=== PATIENT | female | born 1955 | race Caucasian/White ===

== ENCOUNTER 2021-03-13 15:19 | Outpatient (REF) | payer OTHER, SELFPAY ==
[2021-03-13 16:07] LABS: COVID-19 Test Negative (Negative)
== END 2021-03-13 15:20 | disposition home or self-care (01) ==
LOC: HO.LAB 15:19
PROVIDERS: PCP Physician Assistant; Visit Provider Internal Medicine
DX: Z20.822 Contact with and (suspected) exposure to COVID-19 (principal)
CPT/HCPCS: 36415; 87635; C9803

== ENCOUNTER 2021-06-24 08:24 | Outpatient (REF) | payer OTHER, SELFPAY ==
--- NOTE | ~2021-06-24 | CT_ITS ---
EXAMINATION: CT CHEST WITH CONTRAST CLINICAL INFORMATION: Dysphagia COMPARISON: None TECHNIQUE: Multidetector volumetric CT imaging of the chest was obtained after the administration of 65 mL of Omnipaque 350 intravenous contrast without immediate adverse reactions. Oral barium paste was also administered. Axial MIP volume rendering provided. Sagittal and coronal reformatted images were obtained. This CT examination was performed using dose optimization techniques as appropriate, variously including the following: *Automated exposure control *Adjustment of mA and/or kV according to patient size (this includes techniques or standardized protocols for targeted exams where dose is matched to indication/reason for exam; i.e. extremities or head) *Use of iterative reconstruction technique DLP: 193 mGy-cm There is a 3 x 10 mm peripheral or subpleural left upper lobe nodule axial image 141 series 7 or pleural thickening. There is a 4 x 7 mm peripheral or subpleural right upper lobe nodule axial image 144 series 7 or pleural thickening. There is a 2 mm right lower lobe nodule axial image 197 series 7. FINDINGS: LUNGS: The lungs are clear with no evidence of inflammation or nodules. MEDIASTINUM: There is a stent seen in the aortic arch and proximal descending thoracic aorta. There is mild dilatation of the aortic arch measuring 3.3 cm and proximal descending thoracic aorta measuring maximum 3.5 cm in diameter. No dissection is seen. The esophagus abuts the aorta. The mid thoracic esophagus has a slightly aberrant course lateral to the descending thoracic aorta. The esophagus is in between the descending thoracic aorta and the left lower lobe pulmonary artery and vein. The esophagus is otherwise unremarkable. The heart does not appear enlarged. There is mild coronary artery calcification. There is no pericardial effusion. There are no enlarged hilar or mediastinal lymph nodes. PLEURA: There is no pleural effusion. No pleural mass or thickening. AXILLA: No chest wall mass. There are bilateral axillary lymph nodes. Left axillary lymph nodes are upper normal in size, largest measuring 1 cm. UPPER ABDOMEN: There is a small 7 mm low-attenuation lesion high in the right lobe of the liver axial image 60 series 3 probably representing a cyst. There may be a second smaller cyst in the right lobe axial image 68 series 3. Images through the upper abdomen are otherwise unremarkable. OSSEOUS STRUCTURES: There is mild scoliosis and degenerative change of the spine. CT/CT chest w con IMPRESSION: Stent in the aortic arch and proximal descending thoracic aorta. Mild dilatation of the aortic arch measuring 3.3 cm and proximal descending thoracic aorta measuring 3.5 cm. The mid thoracic esophagus courses lateral to the descending thoracic aorta and is located in between the descending thoracic aorta and left lower lobe pulmonary artery and vein. It is possible there could be extrinsic compression on the esophagus from the adjacent vessels. The esophagus is otherwise unremarkable. Probable pleural thickening adjacent to the bilateral upper lobes. A small 2 mm right lower lobe nodule. According to the UPDATED 2017 Fleischner Society recommendations, the advised follow-up imaging for less than 6 mm nodule: Low risk, no chest CT follow-up and high risk, optional chest CT follow-up in one year. Posterior peripheral or subpleural Mild coronary artery calcification. Small probable liver cysts. Upper normal-sized left axillary lymph nodes. Fleischner guidelines were followed.
[2021-06-24] MEDS: iohexoL 350 MG/ML 100 ML INFUS..BTL 85 ML IV (10:31)
== END 2021-06-24 08:25 | disposition home or self-care (01) ==
LOC: HO.CT 08:24
PROVIDERS: PCP Physician Assistant; Visit Provider Internal Medicine Gastroenterology
DX: R13.14 Dysphagia, pharyngoesophageal phase (principal); I25.10 Atherosclerotic heart disease of native coronary artery without angina pectoris; Z95.2 Presence of prosthetic heart valve
CPT/HCPCS: 71260; Q9967

== ENCOUNTER 2021-06-25 11:06 | Outpatient (REF) | payer OTHER, SELFPAY ==
[2021-06-25 11:25] LABS: COVID-19 Test Negative (Negative)
== END 2021-06-25 11:07 | disposition home or self-care (01) ==
LOC: HO.LAB 11:06
PROVIDERS: Visit Provider Internal Medicine
DX: Z20.822 Contact with and (suspected) exposure to COVID-19 (principal)
CPT/HCPCS: 36415; 87635; C9803

== ENCOUNTER 2023-04-11 13:44 | Emergency (ER) | payer OTHER, SELFPAY ==
--- NOTE | ~2023-04-11 | CT_ITS ---
EXAMINATION: CT HEAD WITHOUT CONTRAST CLINICAL INFORMATION: Dizziness. COMPARISON: None. TECHNIQUE: Contiguous axial imaging was performed from the skull base to vertex without intravenous administration of contrast. Coronal and sagittal reformatted images are performed at the CT scanner. [This CT examination was performed using dose optimization techniques as appropriate, variously including the following: *Automated exposure control *Adjustment of mA and/or kV according to patient size (this includes techniques or standardized protocols for targeted exams where dose is matched to indication/reason for exam; i.e. extremities or head) *Use of iterative reconstruction technique] DLP: 671 mGy-cm. FINDINGS: There is no evidence of acute intracranial hemorrhage or territorial infarction. No abnormal mass-effect or midline shift is seen. Hernandez to white matter differentiation is well preserved. No abnormal extra-axial collections. There is a prominent cisterna magna. There is associated asymmetry in the inferior cerebellar hemispheres bilateral, right side appears more atrophic than the left, which is likely developmental normal variant. The ventricles are normal in size. There is no abnormal attenuation within the brain parenchyma. There is no osseous abnormality. The mastoid air cells and visualized portions of the paranasal sinuses are well-aerated. CT/CT head/brain wo IV con IMPRESSION: No acute intracranial pathology.
[2023-04-11 14:31] VITALS: BP 155/75; PULSE 62; RESP 16; TEMP 36.2; O2SAT 97; BMI 28.1
--- NOTE | 2023-04-11 14:33 | ED_ITS ---
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 Symptoms started this morning. They were worse with movement. Was associated with nausea, no vomiting. She has had no fevers or chills. She has had bilateral ear pressure, facial pressure and postnasal drip. She denies any chest pain or palpitations. Symptoms are not associated with exertion. Symptoms have also been intermittent. She has not had symptoms like this before although her stroke was associated with the diplopia in vision changes. The CVA occurred as a result of complication from bilateral carotid artery stent placement. She is currently on aspirin and cholesterol-lowering medications. Patient continues to have symptoms at this time are mild. She does report having had previous diagnosis of a left bundle-branch block on her EKG. Related Data Previous Rx's Medication Instructions Recorded amoxicillin 875 mg tablet 875 mg PO BID #20 tabs 04/11/23 fluticasone propionate 50 1 spray intranasal DAILY #16 grams 04/11/23 mcg/actuation nasal spray,suspension (Flonase Allergy Relief) meclizine 25 mg tablet 25 mg PO BID PRN dizziness or 04/11/23 vertigo #10 tabs ondansetron 4 mg disintegrating 4 mg PO Q8H PRN nausea and 04/11/23 tablet vomiting #10 tabs Allergies Allergy/AdvReac Type Severity Reaction Status Date / Time No Known Allergies Allergy Unverified 03/27/20 15:55 Review of Systems 2 Review of Systems: CONSTITUTIONAL: Denies weight loss, fever and chills. HEENT: Denies changes in vision and hearing. RESPIRATORY: Denies SOB and cough. CV: Denies palpitations no CP. GI: Denies abdominal pain, + nausea,- vomiting and diarrhea. : Denies dysuria and urinary frequency. MSK: Denies myalgia and joint pain. SKIN: Denies rash and pruritus. NEUROLOGICAL: Denies headache and syncope. PSYCHIATRIC: Denies recent changes in mood. Denies anxiety and depression. All other ROS are negative unless in HPI [facility] Past Medical History [facility] Narrative: Hypertension, hypercholesterolemia, CVA, carotid artery stent placement Social History Social History Smoked in Last 30 Days: No Use of substances other than those prescribed or required for medical reasons: No Advance Directives: No Advance Directives Information Provided: No Physical Exam ED Vital Signs: Vital Signs - 24 hr 04/11/23 14:31 04/11/23 19:19 04/11/23 20:14 Temperature 97.2 F 97.9 F Pulse Rate 62 62 61 Respiratory Rate 16 19 Blood Pressure 155/75 H 166/89 H 179/88 H Pulse Oximetry 97 99 Oxygen Delivery Method Room Air Room Air 04/11/23 20:15 04/11/23 20:16 Temperature Pulse Rate 62 65 Respiratory Rate Blood Pressure 179/96 H 160/94 H Pulse Oximetry Oxygen Delivery Method BMI result Body Mass Index 28.1 GEN: Well developed, no acute distress, alert, oriented HEENT: Normocephalic, atraumatic, normal external ears, nose appears normal, no oropharyngeal edema or exudates, perforated right tympanic membrane, no drainage Eyes: Normal to appearance, no nystagmus Neck: Supple, no lymphadenopathy Respiratory: Talks in complete sentences, no respiratory distress, clear to auscultation bilaterally Cardiovascular: Regular rate and rhythm, no murmurs rubs or gallops Abdomen: Soft, nontender, nondistended, no guarding, no rebound Back: No CVA tenderness Extremities: No clubbing cyanosis or edema Neurologic: No focal neurologic deficits, cranial nerves 2-12 intact, strength is 5/5 bilaterally, no pronator drift, kbfmuh-yg-vant intact, jspc-vd-xead intact Skin: No rash Course Course Course Narrative: This is an RME: Additional HPI, ROS, PE not included below will be deferred to primary provider. This is a 30-rkyv-yns-female, with a hx of thoracic anneurysm and stroke 7 years ago seen at [facility], presenting to the emergency department with a complaint of dizziness, lightheadedness, and head pressure. At around 11:00AM this morning she felt dizzy, and fell down to her knees. Denies hitting her head or LOC. She states that she was unable to get right back up due to her symptoms. She took her blood pressure and it was 160s/90s. Reporting some pressure in her head. Reporting some nausea no vomiting. Admitting to have 3 solid bowel movements within 1 hour today. Plan: Labs, CT head, EKG Reevaluation(s) Reevaluation #1: The workup is complete. Symptoms are most consistent with sinus related symptoms. He does have a perforated tympanic membrane on the right which appears to be old in nature based on my conversation with the patient. She has no drainage or ear pain. I will discharge the patient to follow-up with ENT. Time: 21:31 Medical Decision Making Medical Decision Making [facility] Narrative: 67-year-old female presents with dizziness, vertigo, lightheadedness. She has no chest pain, palpitations. Symptoms are worse with movement and associated with bilateral ear pain, facial pressure and postnasal drip. Examination is benign. She has no focal neurologic deficits. Differential diagnosis includes sinusitis, vestibular symptoms, vertigo, peripheral vertigo, electrolyte abnormality, anemia a cardiac dysrhythmia. Plan will be to obtain EKG, laboratory analysis, CT scan of the head. She does have a perforated tympanic membrane on the right which she reports is old. She will likely need a referral to ENT if her workup is negative. However, if her symptoms get worse or identify any significant acute abnormalities, would admit the patient for further evaluation and possible MRI. Differential Diagnosis Differential Diagnoses: The differential diagnosis associated with the presentation includes (See above) Admission/Observation Consideration of admission/observation: Escalation of care including admission/observation considered Lab Data [facility] Lab Attestation statement: I reviewed the patient's lab results. 04/11/23 14:58 04/11/23 14:58 Labs: Lab Results 04/11/23 Range/Units 14:58 WBC 6.5 (4.8-10.8) X10*3/uL RBC 4.19 L (4.20-5.50) X10*6/uL Hgb 12.9 (12.0-16.0) g/dl Hct 38.2 (37.0-47.0) % MCV 91.2 (80.0-98.0) fL MCH 30.8 (27.0-33.0) pg MCHC 33.8 (31.0-35.0) g/dl RDW 13.0 (11.0-16.0) % Plt Count 244 (160-400) X10*3/uL MPV 9.9 (9.4-12.3) fL Immature Gran % (Auto) 0.5 H (0.0-0.4) % Neut % (Auto) 70.1 (45-73) % Lymph % (Auto) 19.4 L (20-40) % [place] % (Auto) 8.0 (2-11) % Eos % (Auto) 1.2 (0-4) % Baso % (Auto) 0.8 (0-2) % Lymph # (Auto) 1.3 (1.2-4.9) X10*3/uL [place] # (Auto) 0.5 (0.1-1.2) X10*3/uL Eos # (Auto) 0.1 (0.0-0.4) X10*3/uL Baso # (Auto) 0.1 (0.0-0.2) X10*3/uL Abs Immat Gran (auto) 0.03 (0.00-0.03) X10*3/uL Absolute Neuts (auto) 4.6 (2.0-8.3) x10*3/uL Absolute Nucleated RBC 0.000 (0.0-0.012) X10*3/uL Nucleated RBC % (auto) 0.0 (0.0-0.2) /100WBC PT 11.3 (11.1-13.3) SEC INR 0.9 (0.9-1.1) APTT 28.1 (26.0-36.4) SEC Sodium 131 L (135-145) mmol/L Potassium 4.1 (3.3-5.1) mmol/L Chloride 99 (96-108) mmol/L Carbon Dioxide 24 (22-29) mmol/L Anion Gap 12 (12-20) BUN 9 (9-16) mg/dL Creatinine 0.68 (0.5-1.4) mg/dL Estim Creat Clear Calc 84.4 Estimated GFR > 60 Random Glucose 104 (60-115) mg/dL Calcium 9.3 (8.4-10.2) mg/dL Magnesium 2.1 (1.6-2.6) mg/dL Total Bilirubin 0.5 (0.0-1.0) mg/dL Direct Bilirubin 0.2 (0.0-0.5) mg/dL AST 17 (5-31) U/L ALT 16 (0-31) U/L Alkaline Phosphatase 74 (39-117) U/L Troponin I High Sens < 2.7 (<3.5-17.0) ng/L Total Protein 6.1 L (6.5-8.0) g/dL Albumin 3.7 (3.5-5.0) g/dL Lipase 42 (8-78) U/L Independent Interpretation I performed an independent interpretation of an: EKG (Sinus bradycardia heart rate 58, left bundle-branch block, no acute ST elevations or depressions, no comparison) and CT Scan (Head: NAD) Radiology Impression Discussion of test interpretation with radiology: I have reviewed the radiologist's reading. Radiologist Impression: CT/CT head/brain wo IV con IMPRESSION: No acute intracranial pathology. Dictated By: Melchor Chavez MD Signed By: <Electronically signed by Melchor Chavez MD in OV> 04/11/23 1433 Prescription Management I considered prescription management with: Antibiotic Chronic Conditions Patient?s care impacted by: Hypertension Discharge Plan Discharge Clinical Impression: Vertigo, Sinusitis, Perforated right tympanic membrane on examination Patient Disposition: Home, Self-Care Instructions: Sinusitis (ED), Ruptured Eardrum (ED), Vertigo (ED) Prescriptions: New amoxicillin 875 mg tablet 875 mg PO BID Qty: 20 0RF fluticasone propionate [Flonase Allergy Relief] 50 mcg/actuation spray,suspension 1 spray intranasal DAILY Qty: 16 0RF Rx Instructions: administer into each nostril ondansetron 4 mg tablet,disintegrating 4 mg PO Q8H PRN (Reason: nausea and vomiting) Qty: 10 0RF meclizine 25 mg tablet 25 mg PO BID PRN (Reason: dizziness or vertigo) Qty: 10 0RF Referrals: Jesusita Walker PA [Primary Care Provider] - 1 week Elie Carrillo [Physician] - 1 week
--- NOTE | 2023-04-11 14:38 | ECG_ITS ---
Test Reason : HTN, HX, DIZZINESS Blood Pressure : / mmHG Vent. Rate : 058 BPM Atrial Rate : 058 BPM P-R Int : 178 ms QRS Dur : 158 ms QT Int : 478 ms P-R-T Axes : 018 -27 131 degrees QTc Int : 469 ms Sinus bradycardia Left bundle branch block Abnormal ECG No previous ECGs available Referred By: Generic ED Physician Electronically Signed By:AXEL EDMONDSON
[2023-04-11 15:04] LABS: MANUAL DIFF FLAG NO
[2023-04-11 15:05] LABS: Basophils Absolute Auto 0.1 X10*3/uL (0.0-0.2); Basophils Percent Auto 0.8 % (0-2); Eosinophils Absolute Auto 0.1 X10*3/uL (0.0-0.4); Eosinophils Percent Auto 1.2 % (0-4); Hematocrit 38.2 % (37.0-47.0); Hemoglobin 12.9 g/dl (12.0-16.0); Imm Gran Abs Auto 0.03 X10*3/uL (0.00-0.03); Imm Gran Pct Auto 0.5 % (0.0-0.4); Lymphocytes Absolute Auto 1.3 X10*3/uL (1.2-4.9); Lymphocytes Percent Auto 19.4 % (20-40); Mean Corpuscular HGB Conc 33.8 g/dl (31.0-35.0); Mean Corpuscular Hemoglobin 30.8 pg (27.0-33.0); Mean Corpuscular Volume 91.2 fL (80.0-98.0); Mean Platelet Volume 9.9 fL (9.4-12.3); Monocytes Absolute Auto 0.5 X10*3/uL (0.1-1.2); Neutrophils Absolute Auto 4.6 x10*3/uL (2.0-8.3); Neutrophils Percent Auto 70.1 % (45-73); Platelet Count 244 X10*3/uL (160-400); Red Blood Count 4.19 X10*6/uL (4.20-5.50); White Blood Count 6.5 X10*3/uL (4.8-10.8)
[2023-04-11 15:25] LABS: INTERNATIONAL NORM RATIO 0.9 (0.9-1.1); Prothrombin Time 11.3 SEC (11.1-13.3)
[2023-04-11 15:27] LABS: Alanine Aminotransferase 16 U/L (0-31); Albumin Level 3.7 g/dL (3.5-5.0); Alkaline Phosphatase 74 U/L (39-117); Anion Gap 12 (12-20); Aspartate Amino Transferase 17 U/L (5-31); Bilirubin Direct 0.2 mg/dL (0.0-0.5); Bilirubin Total 0.5 mg/dL (0.0-1.0); Blood Urea Nitrogen 9 mg/dL (9-16); Calcium 9.3 mg/dL (8.4-10.2); Carbon Dioxide 24 mmol/L (22-29); Chloride 99 mmol/L (96-108); Creatinine Clr Calc Pharmacy 84.4; Estimated Glomerular Filt Rate > 60; Glucose Random 104 mg/dL (60-115); Lipase 42 U/L (8-78); Magnesium 2.1 mg/dL (1.6-2.6); Potassium 4.1 mmol/L (3.3-5.1); Sodium 131 mmol/L (135-145); Total Protein 6.1 g/dL (6.5-8.0)
[2023-04-11 15:28] LABS: Partial Thromboplastin Time 28.1 SEC (26.0-36.4)
[2023-04-11 15:37] LABS: Troponin-I High Sensitivity < 2.7 ng/L (<3.5-17.0)
[2023-04-11 19:19] VITALS: BP 166/89; PULSE 62; RESP 19; TEMP 36.6; O2SAT 99
[2023-04-11 20:14] VITALS: BP 179/88; PULSE 61
[2023-04-11 20:15] VITALS: BP 179/96; PULSE 62
[2023-04-11 20:16] VITALS: BP 160/94; PULSE 65
--- NOTE | 2023-04-11 20:21 | PC.NURSE ---
orthostatic vitals complete with no change in dizziness sensation, pt reporting some ear congestion/intermittent headaches with some loss of balance. endorses wobbly ground vs spinning room. pt states that she has had these symptoms intermittently post CVA but typically resolves.
== END 2023-04-11 21:50 | disposition home or self-care (01) ==
PROVIDERS: Physician Assistant Medical; Emergency Provider Emergency Medicine; PCP Physician Assistant
DX: J32.9 Chronic sinusitis, unspecified (principal); H72.91 Unspecified perforation of tympanic membrane, right ear; R00.1 Bradycardia, unspecified; R55 Syncope and collapse; R42 Dizziness and giddiness; R11.2 Nausea with vomiting, unspecified; Z79.899 Other long term (current) drug therapy
CPT/HCPCS: 36415; 70450; 80048; 80076; 83690; 83735; 84484; 85025; 85610; 85730; 93005; 99284

== ENCOUNTER → 2023-04-14 13:34 | Outpatient (REF) | payer OTHER, SELFPAY | LOC: HO.CARD 13:34 | PROVIDERS: PCP Physician Assistant; Visit Provider Physician Assistant | DX: R06.02 Shortness of breath (principal); I50.30 Unspecified diastolic (congestive) heart failure | CPT/HCPCS: 93306; Q9957 ==

== ENCOUNTER → 2023-04-14 13:39 | Outpatient (BNV) | payer OTHER, SELFPAY | PROVIDERS: PCP Physician Assistant; Visit Provider Internal Medicine | DX: I36.1 Nonrheumatic tricuspid (valve) insufficiency (principal); I42.9 Cardiomyopathy, unspecified | CPT/HCPCS: 93306 ==

== ENCOUNTER → 2025-01-15 07:45 | Outpatient (BNV) | payer OTHER, SELFPAY | PROVIDERS: PCP Physician Assistant; Visit Provider Radiology Diagnostic Radiology | DX: M54.50 Low back pain, unspecified (principal) | CPT/HCPCS: 72148 ==

== ENCOUNTER 2025-01-15 08:02 | Outpatient (REF) | payer OTHER, SELFPAY ==
--- NOTE | ~2025-01-15 | MR_ITS ---
EXAMINATION: MR LUMBAR SPINE WITHOUT CONTRAST CLINICAL INFORMATION: Radiculopathy, low back pain. COMPARISON: None available. TECHNIQUE: MRI of the lumbar spine was obtained using routine sequences without contrast. FINDINGS: Last rib-bearing vertebra labeled T12. Dextroconvex curvature apex at L2. No bone marrow STIR signal abnormality. Multilevel disc desiccation and marginal osteophyte formation with multilevel Schmorl nodes throughout the axial skeleton. Grade 1 retrolisthesis, L1 to and L2-3 levels. Conus medullaris and at superior endplate of L1 with normal signal. Multiple round and ovoid shaped hyperintense T2 cystic lesions in the anterior lateral prevertebral compartment shows retrocrural and posterior to the descending thoracic aorta/proximal suprarenal abdominal aorta. T11-12: No disc herniation. T12-L1: No disc herniation. No gross neuroforamina stenosis. L1-2: Left subarticular and foraminal and extraforaminal broad-based disc herniation resulting in left neuroforamina narrowing likely encroaching the left L1 exiting nerve roots. Facet joint and ligamentum flavum hypertrophy. Reduced AP diameter of the thecal sac. L2-3: Left neuroforamina and broad-based herniated disc encroaching the left L2 exiting nerve root. Left neuroforamina narrowing. Facet joint and ligamentum flavum hypertrophy. Reduced AP diameter of the thecal sac. L3-4: Facet joint and ligamentum flavum hypertrophy. 3 mm hyperintense T2 signal within the left ligamentum flavum. Reduced AP diameter of the thecal sac. Bilateral neuroforamina narrowing. Broad-based disc bulging slightly asymmetric to the left. L4-5: Broad-based disc bulging. Facet joint and ligamentum flavum hypertrophy. Reduced AP diameter of the thecal sac and neuroforamina likely encroaching the exiting nerve roots. L5-S1: Broad-based disc bulging. Facet joint and ligamentum flavum hypertrophy. Reduced AP diameter of the thecal sac and neuroforamina likely encroaching the exiting nerve roots. Hyperintense T2 cystic lesions in the left kidney. MR/MR lumbar spine wo con IMPRESSION: Multilevel thoracolumbar spondylosis and dextroconvex curvature of the lumbar spine apex L2 resulting in multilevel left neuroforamina narrowing/stenosis at L1 to, L2-3 and to a lesser extent L3-4 and L4-5 levels. Mild central spinal canal stenosis at L3-4 and L4-5 levels on a degenerative basis. Small 3 mm synovial cyst beneath the left ligamentum flavum, L3-4. Multiple hyperintense T2 cystic lesions in the retroperitoneum, retrocrural. Electronically signed by: Maury Ceron MD 01/15/2025 09:39 AM EDT
--- OUTSIDE RECORDS SUMMARY | 2025-01-15 08:05 | XMS_ITS | Clinical Summary ---
Author Organization [address] Address [address] [place] [id number] Phone Care Team Providers Care Content Developer Name Role Phone Tonja Lee MD Primary Care Provider [phone] Allergies Active Allergy Reactions Criticality Noted Date Comments Environmental Allergies 01/29/2019 Medications aspirin 81 MG EC tablet Take 1 tablet (81 mg total) by mouth. 03/24/2015 Active cholecalciferol , vitamin D3, 1,000 unit tablet Take 1 tablet (1,000 Units total) by mouth. Active omeprazole (PRILOSEC) 20 mg capsule 12/04/2020 Active atorvastatin (LIPITOR) 40 mg tablet TAKE 1 TABLET BY MOUTH EVERY DAY 06/24/2021 Active hydroCHLOROthia zide (MICROZIDE) 12.5 mg capsule Take 1 capsule (12.5 mg total) by mouth daily. Active pantoprazole (PROTONIX) 40 mg tablet TAKE 1 TABLET ORALLY TWICE DAILY (30-60 MIN BEFORE FOOD) 30 DAY(S) 09/09/2023 Active losartan (COZAAR) 100 mg tablet Take 1 tablet (100 mg total) by mouth daily. Active Active Problems Problem Noted Date Diagnosed Date Ex-smoker 09/14/2021 Aneurysm of subclavian artery 09/14/2021 Cerebral infarction 09/14/2021 Cervical radiculopathy 09/14/2021 Descending aortic aneurysm 09/14/2021 Dysphagia 09/14/2021 Hoarseness of voice 09/14/2021 Gastroesophageal reflux disease 09/14/2021 HLD (hyperlipidemia) 09/14/2021 Carotid artery stenosis 09/14/2021 Benign essential hypertension 06/09/2020 Overview (12/15/2020): Last Assessment & Plan: Blood pressure goal of less than 140/90. Patient has been diligent with sodium intake and avoidance of stimulants which reflects in her blood pressure logs which originally had readings in the range of 140-160/80 and of the past several days in the range of 128-142/78. Heart rate in the range of 50-55. Her blood pressure cuff was checked against our office equipment and was found to be accurate. We discussed continuing of strict dietary restrictions and weight loss versus initiation of pharmacotherapy. At this time patient will continue to monitor her blood pressure at home and call our office if her readings are consistently elevated above goal in which case she agrees to initiate pharmacotherapy. I recommend starting with low-dose of JAYDEN inhibitor in the form of lisinopril 5 mg once daily. 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 No recurrence. Continue aspirin and atorvastatin. Thoracic ascending aortic aneurysm 10/31/2017 Overview (12/15/2020): Last Assessment & Plan: History of thoracic aneurysm repair approximately 4 years ago at [facility]. Patient does not follow with any vascular specialist. We will obtain ultrasound of the aorta to reevaluate repairs and structures. She will follow-up with dr Weinsier for an in office visit after study. Venous stasis dermatitis 10/31/2017 Overview (12/15/2020): Last Assessment & Plan: She does have a history of venous insufficiency, previous imaging studies show that is not severe enough to warrant intervention. She does have some lower extreme the swelling at times. This is not particularly bothersome to her. We did discuss compression stockings in the office today. Family History Medical History Relation Name Comments Alcohol abuse Father Relation Name Status Comments Father Social History Tobacco Use Types Packs/Day Years Used Date Smoking Tobacco: Former Cigarettes Smokeless Tobacco: Never Tobacco Cessation:Counseling Given: Not Answered Alcohol Use Standard Drinks/Week Comments Yes 0 (1 standard drink = 0.6 oz pur e alcohol) Socially Comments Unknown Sex and Gender Information Value Date Recorded Sex Assigned at Not on file Legal Sex Female 2:44 PM EST Gender Identity Not on file Sexual Orientation Not on file Last Filed Vital Signs Vital Sign Reading Time Taken Comments Blood Pressure 130/86 09/17/2019 10:31 AM EDT Pulse - - Temperature - - Respiratory Rate - - Oxygen Saturation - - Inhaled Oxygen Concentration - - Weight 74.8 kg (165 lb) 09/26/2023 2:50 PM EDT Height 167.6 cm (5' 6 ) 09/26/2023 2:50 PM EDT Body Mass Index 26.63 09/26/2023 2:50 PM EDT Plan of Treatment Health Maintenance Due Date Last Done Comments HIV screening 1970 Diabetes screening 09/19/1975 Hepatitis C screening 09/19/1975 Lipid disorder screening 1997 Colon cancer screening, Colonoscopy 2002 Shingles vaccine (Shingrix) (1 of 2 - Shingrix (RZV) 2 Dose Standard Series) 09/19/2007 Pneumococcal Vaccine (50+ years) (2 of 2 - PCV) 09/17/2015 09/16/2014 Tetanus adult (Td q 10,TDAP once) 05/04/2017 05/04/2007 Osteoporosis screening (bone density) 2022 Covid-19 vaccine series ( - season) 2024 Influenza vaccine 03/11/2025 03/03/2020, , 04/13/2018, Additional history exists Breast cancer screening 05/15/2026 05/15/20, 05/15/2024, 04/05/2024, Additional history exists RSV Immunization (1 - 1-dose 75+ series) 2032 Cervical cancer screening Discontinued Meningococcal Vaccine Aged Out No esme artem eligible based on patient's age to complete this topic Insurance SafeNet on file SafeNet on file SafeNet on file Care Teams Content Developer Relationship Specialty Start Date End Date Tonja Lee MD [address] [place] [phone] PCP - General Internal Medicine 02/04/19
== END 2025-01-15 08:03 | disposition home or self-care (01) ==
LOC: HO.MRI 08:02
PROVIDERS: PCP Physician Assistant; Visit Provider Physician Assistant
DX: M54.50 Low back pain, unspecified (principal)
CPT/HCPCS: 72148

== ENCOUNTER 2025-02-15 09:30 | Outpatient (AMB) | payer OTHER, SELFPAY ==
--- NOTE | 2025-02-15 09:32 | A.OFFVIS_ITS ---
Vital Signs 02/15/25 09:33 Height 5 ft 5 in BP 122/60 Blood Pressure Location Lt brachial Position Sitting BP not taken reason Patient Refused Respiration 16 Pulse 56 Pulse Source Pulse Oximeter Pulse Oximetry (%) 98 Oxygen Delivery Method Room Air Intake Visit Reasons: Stenosis of lower lumbar spine Roofing Foreman Required: No Allergies No Known Allergies Allergy (Verified 02/15/25 09:34) Medication List - Last Reconciled 02/15/25 by Holly Jaffe LPN aspirin 81 mg PO DAILY atorvastatin 40 mg PO DAILY cholecalciferol (vitamin D3) 50 mcg PO DAILY losartan 100 mg PO DAILY pantoprazole 40 mg PO BID HPI HPI Stenosis of lower lumbar spine: Details: History of Present Illness The patient is a 69-year-old female presenting with chronic back pain. She reports a several-year history of constant ache on the right side of the mid back and lower back area, with pain intensity ranging from 3 to 8 out of 10. The mid back pain is worse than the lower back pain, which is centrally located. 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 She manages the pain with Tylenol, walking, and weightlifting, which provides some relief. Physical therapy and personal care aid have been tried, with temporary relief noted from chiropractic adjustments. An MRI has shown findings primarily on the left side, despite the patient's pain being more pronounced on the right side. The patient has a history of scoliosis, which may be contributing to muscle tension and pain on the right side due to muscle pulling. The patient has not undergone lumbar medial branch blocks due to aspirin use, which was not discontinued prior to the procedure. Pain Description - Onset: Several years ago - Quality: Constant ache - Location: Right side of mid back and lower back - Intensity: 3 to 8 out of 10 - Exacerbating factors: Twisting, sitting in certain chairs - Relieving factors: Tylenol, walking, weightlifting, chiropractic adjustments - Interference: Affects daily activities due to pain during twisting and sitting Physical Exam - Musculoskeletal: Right side of the back is tighter than the left side, indicating muscle tension Results - MRI: Findings primarily on the left side of the mid back area Pain Management - Affect: Pain impacts daily activities and comfort during sitting and twisting - Analgesia: Current use of Tylenol, pain intensity 3 to 8 out of 10 - Activities of Daily Living: Pain affects ability to sit comfortably and perform twisting motions [facility] Medical History (Updated 02/15/25 @ 10:09 by Norris Aguilar MD) Lumbar stenosis Solitary lung nodule Aneurysm of unspecified site History of CVA (cerebrovascular accident) Basal cell carcinoma of lower back Hyperlipemia Physical Exam Vital Signs: Last Vital Signs Pulse 56 02/15/25 09:33 Resp 16 02/15/25 09:33 BP 122/60 02/15/25 09:33 Pulse Ox 98 02/15/25 09:33 Oxygen Delivery Method Room Air 02/15/25 09:33 Assessment & Plan Assessment & Plan (1) Scoliosis of lumbar spine: Code(s): M41.9 - Scoliosis, unspecified Category: Medical (2) Muscle spasm: Code(s): M62.838 - Other muscle spasm Category: Medical Plan Plan - Initiate focused physical therapy with emphasis on addressing scoliosis- related muscle tension on the right side. - Consider dry needling and acupuncture to relax right-sided muscles. - Recommend magnesium glycinate supplementation to aid muscle relaxation. - Advise against chiropractic adjustments as a long-term solution. - Explore temporary nerve stimulation if physical therapy is insufficient and insurance permits. Patient was informed and verbally consented to the use of an ambient scribe for clinic note documentation during this visit. Discussion Notes I discussed with the patient that her right-sided back pain is likely due to muscle tension caused by scoliosis, despite MRI findings being more pronounced on the left side. We talked about the importance of focused physical therapy to address this muscle tension and the potential benefits of dry needling and acupuncture. I advised against relying on chiropractic adjustments as a long- term solution and suggested magnesium glycinate supplementation to help relax the muscles. We also considered temporary nerve stimulation as a future option if physical therapy does not provide sufficient relief, pending insurance approval. Patient Instructions - Start focused physical therapy to address muscle tension from scoliosis. - Consider dry needling and acupuncture for muscle relaxation. - Take magnesium glycinate as a supplement to help relax muscles. - Avoid relying on chiropractic adjustments for long-term relief. - Follow up if physical therapy does not help, to discuss further options like nerve stimulation. Orders: Orders PT Evaluation and Treatment 02/15/25 M41.9 - Scoliosis, unspecified, M62.838 - Other muscle spasm Medications: New cholecalciferol (vitamin D3) 50 mcg PO DAILY Coding Level of Care Code New Pt Level 4 (04480) Diagnoses Scoliosis of lumbar spine M41.9 Muscle spasm M62.838
[2025-02-15 09:33] VITALS: BP 122/60; PULSE 56; RESP 16; O2SAT 98
== END 2025-02-15 10:22 | disposition home or self-care (01) ==
LOC: HO.PMC 09:31
PROVIDERS: PCP Physician Assistant; Visit Provider Internal Medicine
DX: M41.9 Scoliosis, unspecified (principal); M62.838 Other muscle spasm
CPT/HCPCS: 99204

== ENCOUNTER 2025-04-19 07:51 | Outpatient (RCR) | payer OTHER, SELFPAY ==
[2025-03-29 08:03] VITALS: BP 140/64; PULSE 57
--- NOTE | 2025-03-29 09:01 | MHC.PT.EP ---
[facility] [place] Office [place] Office [place] Office [address] [phone] F: [phone] F: [phone] F: [phone] F: [phone] Physical Therapy Plan of Care Date of Evaluation: 03/29/25 Date of Surgery: NA Diagnosis: Scoliosis Pain in thoracic spine Low back pain Assessment: Ingrid is a 69 year old female who is referred to PT for scoliosis, thoracic pain and low back pain . She reports of having pain on the R side of her back for about 3-4 years. She denies any trauma or falls. On PT examination she presents with TTP over B lumbar paraspinals and R side thoracic spine at T10 level, 5/10 pain with sitting and standing for more than 1 hour, twisting to the R and cooking, decreased thoracic rotation and lumbar lateral flexion, decreased scap muscle strength, L scoliosis and other postural deviations. She lives alone and is independent with all ADLs but has pain with it. 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 She would benefit from skilled PT to address the aforementioned impairments and improve tolerance to functional activities. Frequency and Duration: The patient will be seen 1/week for 6 weeks Short Term Goals: 1. Pt will have 50% decrease in pain which will enable her to get in and out of car without pain in 2 weeks 2. Pt will demonstrate full thoracic and lumbar ROM without any pain which will enable her to tolerate sitting and standing for 1 hour without pain in 4 weeks Television Analyzer Goals: 1. Pt will demonstrate an increase in muscle strength by 1 grade which will enable her to perform all ADLS without pain in 6 weeks 2. Pt will be independent with all HEP for symptom management and maintenance following d/c in 6 weeks. Treatment Plan: Modalities to reduce pain, spasms and effusion. Manual therapy to restore motion and function. Therapeutic exercise to improve strength and flexibility. Neuromuscular re-education for posture and balance. Therapeutic activities to return to functional activities of daily living. Electronically signed by: Megha Blum PT DPT Please sign and return to therapist. Thank you for your referral.
--- NOTE | 2025-05-15 08:33 | MHC.PT.DC ---
[facility] [place] Office [place] Office [place] Office [address] [phone] F: [phone] F: [phone] F: [phone] F: [phone] Physical Therapy Discharge Report Diagnosis: Scoliosis Pain in thoracic spine Low back pain Date of Surgery: NA Date of Evaluation: 03/29/25 Date of Discharge: 05/15/25 Treatments to Date: 4 Cancellations to Date: 2 No Shows to Date: 1 Discharge Status: Patient Elected to Stop Discharge Summary: Ingrid attended 4 PT visits and canceled her last 2 appointments. She has not called back to schedule more. During her last appointment she made significant improvements with PT and was independent with all HEPs. She is therefore being d/c from PT. Electronically signed by: Megha Blum PT DPT Please sign and return to therapist. Thank you for your referral.
== END 2025-05-15 08:33 | disposition home or self-care (01) ==
LOC: HO.PT 07:51
PROVIDERS: PCP Physician Assistant; Visit Provider Internal Medicine
DX: M54.6 Pain in thoracic spine (principal); M54.50 Low back pain, unspecified; M62.838 Other muscle spasm; M41.9 Scoliosis, unspecified
CPT/HCPCS: 97110; 97161